=== PATIENT | female | born 1960 | race Caucasian/White ===

== ENCOUNTER → 2020-11-01 | Outpatient (CLI) | payer OTHER ==
[2020-11-01 13:42] LABS: HEMOGLOBIN 13.2 gm/dl (12.3-15.3); RED BLOOD COUNT 3.74 M/UL (4.00-5.10); WHITE BLOOD COUNT 6.6 K/UL (4.5-11.0)
[2020-11-02 08:14] LABS: VITAMIN D, 25-HYDROXY 8.6 ng/mL (30.0-100.0)
[2020-11-02 11:14] LABS: RHEUMATOID ARTHRITIS FACTOR 12.4 IU/mL (0.0-13.9)
== END ==
LOC: LAB 12:59
PROVIDERS: Nurse Practitioner Family
DX: M25.50 Pain in unspecified joint (principal); E78.5 Hyperlipidemia, unspecified; F41.1 Generalized anxiety disorder; I10 Essential (primary) hypertension
CPT/HCPCS: 36415; 80053; 80061; 82607; 82746; 85025; 85652; 86038; 86431